=== PATIENT | female | born 1945 | race Two or more races ===

== ENCOUNTER 2018-10-09 08:40 | Outpatient (CLI) | payer OTHER ==
[~2018-10-09] VITALS: Ht 167.6 cm; Wt 64.4 kg
== END 2018-10-09 09:00 | disposition home or self-care (01) ==
LOC: OFIC 805 08:40
DX: R87.810 Cervical high risk human papillomavirus (HPV) DNA test positive (principal); J30.89 Other allergic rhinitis; R09.81 Nasal congestion

== ENCOUNTER 2021-07-10 08:34 | Outpatient (CLI) | payer OTHER | END 2021-07-10 08:51 | disposition home or self-care (01) | LOC: EKG 08:34 | PROVIDERS: ATTEND Anesthesiology | DX: I10 Essential (primary) hypertension (principal) ==

== ENCOUNTER 2022-04-18 12:01 | Outpatient (CLI) | payer OTHER | END 2022-04-18 12:10 | disposition home or self-care (01) | LOC: MAMO-SONO 12:01 | PROVIDERS: ATTEND Specialist | DX: N60.11 Diffuse cystic mastopathy of right breast (principal); N60.12 Diffuse cystic mastopathy of left breast ==

== ENCOUNTER 2022-04-27 10:27 | Outpatient (CLI) | payer OTHER | END 2022-04-27 10:32 | disposition home or self-care (01) | LOC: RAD 10:27 | PROVIDERS: ATTEND Specialist | DX: J44.9 Chronic obstructive pulmonary disease, unspecified (principal) ==

== ENCOUNTER 2022-06-22 14:00 | Outpatient (CLI) | payer OTHER | END 2022-06-22 14:26 | disposition home or self-care (01) | LOC: RAD 14:00 | DX: M51.36 Other intervertebral disc degeneration, lumbar region (principal); S32.000A Wedge compression fracture of unspecified lumbar vertebra, initial encounter for closed fracture ==

== ENCOUNTER → 2022-08-17 | Outpatient (CLI) | payer OTHER | END | disposition home or self-care (01) | LOC: RAD 15:54 | DX: M54.59 Other low back pain (principal); M54.17 Radiculopathy, lumbosacral region ==

== ENCOUNTER → 2022-09-14 | Outpatient (CLI) | payer OTHER | END | disposition home or self-care (01) | LOC: SONOGRAMA 08:16 | PROVIDERS: ATTEND Specialist | DX: I71.40 Abdominal aortic aneurysm, without rupture, unspecified (principal) ==

== ENCOUNTER → 2022-09-27 07:08 | Outpatient (CLI) | payer OTHER | END | disposition home or self-care (01) | LOC: NUCLEAR 07:08 | PROVIDERS: ATTEND Internal Medicine Rheumatology | DX: M06.4 Inflammatory polyarthropathy (principal) | CPT/HCPCS: 78315; A9503 ==

== ENCOUNTER → 2023-04-05 | Outpatient (CLI) | payer OTHER | END | disposition home or self-care (01) | LOC: RAD 10:05 | DX: S42.201A Unspecified fracture of upper end of right humerus, initial encounter for closed fracture (principal) ==

== ENCOUNTER → 2023-04-23 | Outpatient (CLI) | payer OTHER | END | disposition home or self-care (01) | LOC: MAMO-SONO 10:48 | PROVIDERS: ATTEND Specialist | DX: N60.11 Diffuse cystic mastopathy of right breast (principal); N60.12 Diffuse cystic mastopathy of left breast; Z12.31 Encounter for screening mammogram for malignant neoplasm of breast ==

== ENCOUNTER 2023-10-25 10:59 | Outpatient (CLI) | payer OTHER | END 2023-10-25 11:01 | disposition home or self-care (01) | LOC: NUCLEAR 10:59 | PROVIDERS: ATTEND Specialist | DX: I82.409 Acute embolism and thrombosis of unspecified deep veins of unspecified lower extremity (principal) ==

== ENCOUNTER 2023-12-10 13:44 | Outpatient (CLI) | payer OTHER | END 2023-12-10 13:51 | disposition home or self-care (01) | LOC: RAD 13:44 | PROVIDERS: ATTEND Internal Medicine Pulmonary Disease | DX: J45.30 Mild persistent asthma, uncomplicated (principal) ==

== ENCOUNTER → 2024-03-19 | Outpatient (CLI) | payer OTHER | END | disposition home or self-care (01) | LOC: RAD 13:34 | DX: M25.561 Pain in right knee (principal); M25.562 Pain in left knee ==

== ENCOUNTER 2024-04-24 08:08 | Outpatient (CLI) | payer OTHER | END 2024-04-24 08:11 | disposition home or self-care (01) | LOC: NUCLEAR 08:08 | PROVIDERS: ATTEND Internal Medicine | DX: I73.9 Peripheral vascular disease, unspecified (principal) ==

== ENCOUNTER 2024-07-07 15:00 | Emergency (ER) | payer OTHER ==
[~2024-07-07] VITALS: Ht 162.6 cm; Wt 54.4 kg
[2024-07-07] MEDS ORDERED: ZYRTEC10 M3 (15:28)
[2024-07-07] MEDS ORDERED: MONTELUKAST SODI4 M1 (15:28)
[2024-07-07] MEDS ORDERED: SIMVASTATIN10 MG (15:28)
[2024-07-07] MEDS ORDERED: KETOROLAC TROMETHAMINE 15 MG VIAL IM ONE (19:30)
== END 2024-07-07 21:50 | disposition home or self-care (01) ==
LOC: ER 15:02
DX: S99.812A Other specified injuries of left ankle, initial encounter (principal); W19.XXXA Unspecified fall, initial encounter; Y93.89 Activity, other specified; Y92.89 Other specified places as the place of occurrence of the external cause; Y99.8 Other external cause status; M25.572 Pain in left ankle and joints of left foot; I10 Essential (primary) hypertension; E03.8 Other specified hypothyroidism
CPT/HCPCS: 73610; 73630; 96372; 99283; J1885

== ENCOUNTER 2024-07-16 10:22 | Outpatient (CLI) | payer OTHER ==
[~2024-07-16 10:22] MED LIST: MONTELUKAST SODI4 M1; SIMVASTATIN10 MG; ZYRTEC10 M3
== END 2024-07-16 10:27 | disposition home or self-care (01) ==
LOC: MAMO-SONO 10:22
PROVIDERS: ATTEND Specialist
DX: N60.11 Diffuse cystic mastopathy of right breast (principal); N60.12 Diffuse cystic mastopathy of left breast; Z12.31 Encounter for screening mammogram for malignant neoplasm of breast

== ENCOUNTER 2025-01-18 02:57 | Emergency (ER) | payer OTHER ==
[~2025-01-18] VITALS: Ht 162.6 cm; Wt 62.6 kg
[2025-01-18] MEDS ORDERED: LEVOTHYROXINE25 MCG (03:02)
[2025-01-18] MEDS ORDERED: QBRELIS1 MG/1 ML (03:02)
[2025-01-18] MEDS ORDERED: SIMVASTATIN5 MG (03:03)
[2025-01-18] MEDS ORDERED: METHYLPREDNISOLONE SOD SUCC 125 MG VIAL IV STA (03:28)
[2025-01-18] MEDS ORDERED: DIPHENHYDRAMINE HCL 50 MG/ML VIAL 1ML IV STA (03:28)
[2025-01-18] MEDS ORDERED: FAMOTIDINE/PF 20 MG/2 ML VIAL IV PUSH STA (03:29)
[2025-01-18] MEDS ORDERED: FAMOTIDINE/PF 20 MG/2 ML VIAL ONE (03:36)
[2025-01-18] MEDS ORDERED: METHYLPREDNISOLONE SOD SUCC 125 MG VIAL ONE (03:36)
[2025-01-18] MEDS ORDERED: DIPHENHYDRAMINE HCL 50 MG/ML VIAL 1ML ONE (03:36)
[2025-01-18] MEDS ORDERED: BENADRYL25 MG PO (06:21)
[2025-01-18] MEDS ORDERED: MEDROL8 MG PO (06:21)
[2025-01-18] MEDS ORDERED: PEPCID40 MG PO (06:21)
== END 2025-01-18 06:28 ==
LOC: ER 02:57
DX: T78.3XXA Angioneurotic edema, initial encounter (principal); R21 Rash and other nonspecific skin eruption; I10 Essential (primary) hypertension
CPT/HCPCS: 96365; 99282; J1200; J3490 ×2